=== PATIENT | female | born 1965 | race Caucasian/White ===

== ENCOUNTER 2018-05-31 10:19 | Inpatient (IN) ==
--- NOTE | 2018-04-17 10:51 | Anesthesiology Consultation ---
Date of Service April 17, 2018 Assessment & Plan (1) Encounter for pre-operative examination: Plan: - Check test AM DOS Chart Review Chart Review: Acceptable Risk for Surgery and Patient seen in Pre Admission Testing Teaching & Discussion Pre-Anesthesia Teaching/Discussion Notes: Instructed NPO after midnight before surgery,except medications with 15 cc of water. Medication instructions provided according to the PAT guidelines. History Surgery Operation Date: 05/31/18 07:30 Proposed Procedures p Right Total Knee Replacement - Bradley Alexander MD Height/Weight Height: 5 ft 6 in Weight: 103.2 kg Allergies Allergy/AdvReac Type Severity Reaction Status Date / Time No Known Allergies Allergy Verified 04/11/18 11:49 Medications Home Medications Medication Instructions Recorded Confirmed Last Taken Vitamin D 5,000 unit PO WK 04/11/18 04/11/18 Unknown budesonide-formoterol [Symbicort] 2 puff INHALATION HS 04/11/18 04/11/18 Unknown diclofenac sodium 75 mg PO BID PRN 04/11/18 04/11/18 Unknown fluticasone 2 spray INTRANASAL QPM 04/11/18 04/11/18 Unknown levothyroxine 150 mcg PO QAM 04/11/18 04/11/18 Unknown montelukast 10 mg PO PM 04/11/18 04/11/18 Unknown multivitamin 1 tab PO DAILY 04/11/18 04/11/18 Unknown ranitidine HCl 300 mg PO HS 04/11/18 04/11/18 Unknown sertraline 200 mg PO QAM 04/11/18 04/11/18 Unknown Past Medical History Medical History Anxiety Depression GERD (gastroesophageal reflux disease) CONTROLLED Hypothyroidism Obesity Osteoarthritis Sleep apnea CPAP Past Surgical History Surgical History H/O bilateral breast reduction surgery H/O bladder repair surgery MESH IMPLANTED H/O plastic surgery BILATERAL UE SKIN REMOVAL History of arthroscopy LEFT KNEE History of colonoscopy History of tonsillectomy History of tooth extraction History of total knee replacement LEFT Hx of laparoscopic gastric banding S/P panniculectomy Past Anesthesia History No Hx of Anesthesia Complications and No Family Hx of Anesthesia Complications History of PONV No Motion Sickness Screening History of Motion Sickness: No Social History Smoking Status: Never smoker Do You Dip or Chew Tobacco: No Hx Alcohol Use: Yes Alcohol type: wine and hard liquor alcohol intake frequency: a few times a week Hx Substance Use: Yes substance use type: marijuana (OCCASIONAL USE (INGESTION)- LAST USE "FEW WEEKS AGO"- ADVISED NO USE AM DOS) Exercise / Class Metabolic Activity II 4-5 Yardwork/Stairs/Walk up hill Review of Systems Patient reports knee pain. Reflux controlled. Patient denies chest pain, shortness of breath, cough, wheezing, palpitations. Physical Exam Vital Signs VITALS BP 119/83 P 63 TEMP 97.7 RESP 18 SP02 97%RA Full neck and c-spine range of motion. Full TMJ range of motion. TMD 3 finger breaths Mallampati Score3 Dentition: intact Lungs: clear throughout to auscultation Cardiac: regular rate and rhythm, no murmurs noted Spine: normal Carotid arteries: negative bruit Extremities: no edema Testing Electrocardiogram Date: 04/17/18 Findings: + NSR @ (66) Chest X-Ray Date: 04/17/18 Findings: + NAD The heart is top normal for projection. There is left basilar atelectasis. Chronic interstitial thickening is similar to previous. No airspace consolidation or pleural effusion is identified. A gastric band is noted in the upper abdomen. Laboratory Results 04/17/18 11:16 04/17/18 11:16 Blood Type A Positive 04/17/18 11:16 Antibody Screen NEGATIVE 04/17/18 11:16 PT 10.1 Seconds (9.0-12.0) 04/17/18 11:16 INR 1.0 (0.9-1.1) 04/17/18 11:16 APTT 30.6 Seconds (21.0-31.0) 04/17/18 11:16
--- NOTE | 2018-04-17 10:53 | PAT Medication Instructions ---
Medication Instructions Date of Service April 17, 2018 Home Medications Vitamin D 5,000 unit PO WK budesonide-formoterol [Symbicort] 2 puff INHALATION HS diclofenac sodium 75 mg PO BID PRN fluticasone 2 spray INTRANASAL QPM levothyroxine 150 mcg PO QAM montelukast 10 mg PO PM multivitamin 1 tab PO DAILY ranitidine HCl 300 mg PO HS sertraline 200 mg PO QAM ASK your surgeon for instructions diclofenac sodium 75 mg PO BID PRN DO NOT take the morning of surgery Vitamin D 5,000 unit PO WK multivitamin 1 tab PO DAILY Take morning of surgery With a small sip of water, OTHERWISE NOTHING TO EAT OR DRINK AFTER MIDNIGHT: levothyroxine 150 mcg PO QAM sertraline 200 mg PO QAM Take evening before surgery Vitamin D 5,000 unit PO WK budesonide-formoterol [Symbicort] 2 puff INHALATION HS diclofenac sodium 75 mg PO BID PRN fluticasone 2 spray INTRANASAL QPM levothyroxine 150 mcg PO QAM montelukast 10 mg PO PM multivitamin 1 tab PO DAILY ranitidine HCl 300 mg PO HS Other Notes If you have any questions please call us at [phone] or [phone] or [phone] or [phone]
--- NOTE | 2018-04-17 11:58 | XRay Report ---
TWO VIEW CHEST CLINICAL HISTORY: Preoperative examination. FINDINGS: PA and lateral chest radiographs are compared to study dated 11/06/2012. The heart is top nor mal for projection. There is left basilar atelectasis. Chronic interstitial thickening is similar to previous. No airspace consolidation or pleural effusion is identified. There is no pneumothorax. The skeletal structures are osteopenic. Degenerative change is noted throughout the thoracic spine. The b cesar thorax appears intact. A gastric band is noted in the upper abdomen. IMPRESSION: No active disease in the chest. Electronically signed by: Moises Harden M.D. 04/17/2018 11:57 AM
[2018-04-17 12:40] LABS: Basophils # (auto) 0.05 K/uL (0-0.2); Basophils % (auto) 0.7 %; Eosinophils # (auto) 0.19 K/uL (0-0.5); Eosinophils % (auto) 2.6 %; Hematocrit (blood only) 43.5 % (37-47); Hemoglobin 14.2 g/dL (12.0-16.0); Immature Granulocytes # (auto) 0.01 K/uL (0.00-0.02); Immature Granulocytes % (auto) 0.1 %; Lymphocytes # (auto) 1.42 K/uL (1.2-3.4); Lymphocytes % (auto) 19.2 %; Mean Corpuscular Hgb Conc 32.6 g/dL (32-36); Mean Corpuscular Volume 94.8 fL (80-100); Mean Platelet Volume 10.9 fL (7.4-10.4); Monocytes # (auto) 0.74 K/uL (0.11-0.59); Neutrophils % (auto) 67.4 %; Platelet Count 328 K/uL (130-400); RDW Coefficient of Variation 14.1 % (11.5-14.5); RDW Standard Deviation 48.4 fL (36.4-46.3); Red Blood Count 4.59 M/uL (4.2-5.4); White Blood Count 7.41 K/uL (4.8-10.8)
[2018-04-17 12:57] LABS: BUN Creatinine Ratio 24.9 (10-20); Creatinine Clr Calc Pharmacy 105.5 ml/min; Est GFR (African American) 106.5; Est GFR (Non-African American) 91.8; Potassium 4.6 mmol/L (3.5-5.1)
[2018-04-17 12:59] LABS: C Reactive Protein 1.84 mg/dl (0-0.29)
[2018-04-17 13:09] LABS: Partial Thromboplastin Ratio 1.2; Partial Thromboplastin Time 30.6 Seconds (21.0-31.0); Prothrombin Time 10.1 Seconds (9.0-12.0)
--- NOTE | 2018-05-26 18:55 | History and Physical Report ---
DATE OF ADMISSION: 05/31/2018 CHIEF COMPLAINT: Right knee pain and discomfort. HISTORY OF PRESENT ILLNESS: Patient is a 52-year-old female from [place], who presents for surgical treatment of her right knee. She is well known to me from replacement of her left knee back in 12/2012. She has done well from this side. She continues to be bothered by right knee pain and discomfort, describes it has just gotten worse over time. She has been through extensive treatment including oral medicines as well as injections, which provided temporary relief only. Only gets a couple of days of relief from the shot. The medicines are not managing it for her. She now would like to have her right knee replaced. She has pain all the time. The more she walks, the more it hurts. It keeps her up at night, almost every night. PAST MEDICAL HISTORY: Significant for 1. Sleep apnea, with CPAP machine. 2. Hypothyroidism. 3. Arthritis. 4. Gastroesophageal reflux disease. 5. Obesity with a BMI of 37. PAST SURGICAL HISTORY: Previous surgeries include left knee replacement done on 12/14/2012. ALLERGIES: None. MEDICATIONS: Current medicines include 1. Symbicort 2 puffs at night. 2. Ventolin inhaler. 3. Synthroid 150 mcg a day. 4. Sertraline 100 mg twice a day. 5. Montelukast 10 mg in the evening. 6. Fluticasone nasal spray. 7. Diclofenac twice a day. 8. Ranitidine 300 mg in the evening. SOCIAL HISTORY: This is a 52-year-old female. She is from [place]. She does not smoke. 4 drinks per week. Occasionally marijuana use. FAMILY HISTORY: Noncontributory. REVIEW OF SYSTEMS: Negative for diabetes, neurologic problem, vascular problem, bleeding disorders. No chest pain, no shortness of breath. No history of DVT or PE. No known bleeding disorder. No dysuria. PHYSICAL EXAMINATION: GENERAL: Exam reveals a healthy and pleasant middle-aged female, looks to be in excellent health. HEENT: Benign. NECK: Supple. No lymphadenopathy. RESPIRATORY: Lungs are clear to auscultation. CARDIOVASCULAR: Heart has a regular rate and rhythm. GASTROINTESTINAL: Abdomen is soft, nontender, nondistended. EXTREMITIES: Grossly neurovascularly intact except as follows: Examination of the right knee reveals patient walks with bit of a limp, fairly neutral to slight varus alignment to her knee, moderate-sized knee effusion. Range of motion is near full extension and 125 degrees of flexion. No instability. Examination of the left knee reveals well-healed incision. No significant swelling. Range of motion is 0-125. IMAGING: X-rays of the right knee reviewed, showed advanced right knee DJD. She has tricompartment disease. She has complete loss of medial joint space. There is some degree of tibiofemoral subluxation. The left knee replacement looks to be in good position without signs of problems. ASSESSMENT: A 53-year-old white female 5 years out from left knee replacement with advanced right knee degenerative joint disease. She has failed conservative treatment and would like to have her right knee replaced. PLAN: Will take her to the operating room and do right total knee replacement. The risks and benefits of this procedure were explained to the patient including but not limited to DVT, PE, , infection, neurological injury, vascular injury, bleeding problem, pain, limited range of motion, stiffness, failure to relieve her symptoms, incomplete relief of symptoms, need for further surgery in the future, fracture, leg length inequality, nerve palsy, need for revision surgery in the future. She is fully aware at her young age, this might need to be redone. She is aware and would like to proceed. She knows about stopping her diclofenac 10 days preop. She will bring her CPAP machine to the hospital.
[~2018-05-31 10:19] MED LIST: ACETAMINOPHEN 500 MG TAB PO SCH; ACETAMINOPHEN SOLN 1000MG/31.25ML UDC PO SCH; BUPIVACAINE 0.5 % 5 MG/1 ML PF 10ML VIAL ONE; BUPIVACAINE LIPOSOME/PF 266 MG, BUPIVACAINE/EPINEPHRINE 50 ML, SODIUM CHLORIDE 0.9% 30 ... INFIL SCH; CEFAZOLIN 2000MG 2,000 MG/15 ML SYR IV SCH; LR 60ML/HR IV SCH; ROPIVACAINE 0.5% 5 MG/ML 30 ML VIAL ONE; SCOPOLAMINE 1.5 MG TDSY TD SCH; TRANEXAMIC ACID 1,000 MG **IV Intra-op IV SCH; VANCOMYCIN HCL 1,500 MG in SODIUM CHLORIDE 0.9% 500 ML IV SCH
[2018-05-31] MEDS: FAMOTIDINE 20 MG TAB PO SCH ×2 (11:14→11:35)
[2018-05-31] MEDS: GABAPENTIN 300 MG x 3 PO SCH ×2 (11:14→11:34)
[2018-05-31] MEDS: METOCLOPRAMIDE HCL 10 MG TABLET PO SCH ×2 (11:14→11:34)
[2018-05-31] MEDS: LR 500ML BOLUS, THEN 15ML/HR IV SCH ×5 (11:15→18:52)
[2018-05-31 11:24] LABS: Pregnancy Test, Serum Negative (Negative)
--- NOTE | 2018-05-31 13:10 | History & Physical Bridge Note ---
Date of Service May 31, 2018 History & Physical Bridge Note I have examined the patient, reviewed the History & Physical and in the interval since the performance of the History & Physical I have noted the following changes of clinical significance: no changes noted
[2018-05-31] MEDS ORDERED: MIDAZOLAM HCL 1 MG/ML 2ML VIAL ONE ×2 (13:21→14:18)
[2018-05-31] MEDS ORDERED: fentaNYL citrate 100 MCG/2 ML VIAL ONE ×2 (13:22→14:18)
[2018-05-31] MEDS ORDERED: HYDROmorphone INJ 2 MG/ML SYR/VIAL IV PRN (13:56)
[2018-05-31] MEDS ORDERED: ATROPINE SULFATE 0.1 MG/ML 10ML SYR IV PRN (13:56)
[2018-05-31] MEDS ORDERED: ePHEDrine sulfate 50 MG/ML AMP IV PRN (13:56)
[2018-05-31] MEDS ORDERED: BUPIVACAINE LIPOSOME 1.3% 266 MG/20 ML VIAL ONE (14:49)
[2018-05-31] MEDS ORDERED: SODIUM CHLORIDE 0.9% PF 50 ML VIAL ONE (14:49)
[2018-05-31] MEDS ORDERED: BACITRACIN INJ 50,000 UNIT VIAL ONE (14:49)
[2018-05-31] MEDS ORDERED: BUPIVACAINE 0.25% 30 ML VIAL ONE (14:50)
[2018-05-31] MEDS ORDERED: EPINEPHrine INJ 1 MG/ML AMP ONE (14:50)
[2018-05-31] MEDS ORDERED: PROPOFOL IV EMULSION 10 MG/ML 20 ML VIAL IV ONE (17:02)
--- NOTE | 2018-05-31 17:06 | Post Operative Brief Note ---
Immediate Post Op Note v1 Date of Surgery May 31, 2018 Pre & Post Diagnosis Operation Date: 05/31/18 12:45 Pre-Op Diagnosis: Right Knee Degenerative Joint Disease Post-Op Diagnosis: Right Knee Degenerative Joint Disease Procedure Operation Date: 05/31/18 12:45 Actual Procedures p Right Total Knee Replacement(Right) - Bradley Alexander MD Surgeon Bradley Alexander MD Geologist Maciel, PAC Estimated Blood Loss 50 Findings Consistent with Post-Op Diagnosis Fluids 1500 cc Specimens Right Knee Anesthesia Type Spinal MAC Complications none Disposition Accompanied Patient To Recovery: No Disposition: Recovery Room
--- NOTE | 2018-05-31 17:28 | Anesthesiology Progress Note ---
Date of Service May 31, 2018 Anesthesia Post Procedure Vital Signs Vital Signs: Temp Pulse Pulse Resp BP BP Pulse Ox 05/31/18 17:20 57 L 16 124/85 98 05/31/18 17:11 37.2 C 65 16 118/87 100 05/31/18 10:51 36.7 C 65 20 115/78 94 Notes Mental Status: alert / awake / arousable Patient Amnestic to Procedure: Yes Nausea / Vomiting: adequately controlled Pain: adequately controlled Airway Patency, RR, SpO2: stable & adequate BP & HR: stable & adequate Hydration State: stable & adequate Neuraxial Anesthesia: was administered and sensory block is resolving Anesthetic Complications: no major complications apparent
--- NOTE | 2018-05-31 17:44 | XRay Report ---
TWO VIEWS RIGHT KNEE CLINICAL HISTORY: Postoperative examination. FINDINGS: AP and crosstable lateral portable views of the right knee are obtained. A right knee arthr oplasty is in near anatomic alignment. There has been undersurface remodeling of the patella. No acut e fracture is seen. There are expected postoperative changes around the knee including skin clips, s oft tissue edema, and subcutaneous gas. IMPRESSION: Expected postoperative changes status post right knee arthroplasty. No acute fracture is seen. Electronically signed by: Moises Harden M.D. 05/31/2018 5:43 PM
[2018-05-31] MEDS ORDERED: METOCLOPRAMIDE HCL INJ 5 MG/ML 2 ML VIAL IV PRN (17:45)
[2018-05-31] MEDS ORDERED: ONDANSETRON INJ 2 MG/ML 2 ML VIAL IV PRN (17:45)
[2018-05-31] MEDS ORDERED: HYDROmorphone INJ 0.5 MG/0.5 ML SYR IV PRN (17:45)
[2018-05-31] MEDS ORDERED: NALOXONE HCL 0.4 MG/1 ML VIAL/CARP IV PRN (17:45)
[2018-05-31] MEDS ORDERED: BISACODYL 10 MG SUPP PR PRN (17:45)
[2018-05-31] MEDS ORDERED: ALUMINUM/MAGNESIUM SUSP 30 ML UDC PO PRN (17:45)
[2018-05-31] MEDS ORDERED: MAGNESIUM HYDROXIDE SUSP 30 ML UDC PO PRN (17:45)
[2018-05-31] MEDS ORDERED: VANCOMYCIN CONSULT ACTIVE PRN (17:45)
[2018-05-31] MEDS: CHECK SCOPOLAMINE PATCH PLACEMENT SCH (18:57)
[2018-05-31] MEDS: KETOROLAC 30 MG/ML VIAL IV SCH (18:57)
[2018-05-31] MEDS: SODIUM CHLORIDE 0.9% 1000ML 1,000 ML IV SCH (18:57)
[2018-05-31] MEDS: OXYCODONE HCL IR 5 MG TAB (IMMEDIATE RELEASE) PO PRN (19:58)
--- NOTE | 2018-05-31 20:23 | Operative Report ---
DATE OF OPERATION: 05/31/2018 SURGEON: Bradley Alexander MD NAIL ASSEMBLY MACHINE OPERATOR: ELOY Bertrand PREOPERATIVE DIAGNOSIS: Right knee degenerative joint disease. POSTOPERATIVE DIAGNOSIS: Same. PROCEDURE PERFORMED: Right cemented posterior stabilized total knee arthroplasty. COMPLICATIONS: None. ESTIMATED BLOOD LOSS: 50 mL. FLUID REPLACEMENT: 1500 mL crystalloid fluid replacement. TOURNIQUET TIME: 63 minutes at 350 mmHg. ANESTHESIA: Spinal with adductor canal block. DRAINS: None. SPECIMENS: Right knee sent for pathology. OPERATIVE INDICATIONS: The patient is a 52-year-old very active female who has had a long history of knee pain and arthritis. She underwent a left knee replacement about 5 years ago and has done remarkably well. She has been trying to put off right knee surgery for a long time, but unsuccessful. She has become more debilitated by her pain. Very temporary response to injection treatment and minimal response to NSAIDS. She would now like to proceed with total knee arthroplasty. OPERATIVE IMPLANTS: Operative implants consisted of: 1. Biomet Vanguard size 65 right posterior stabilized femoral component. 2. Biomet size 67 tibial tray. 3. A 12-mm posterior stabilized polyethylene insert. 4. A 31 x 8 all poly patella. OPERATIVE PROCEDURE: The patient was taken to the operating room, identified and placed on the operating table in supine position. All contact areas were appropriately padded. IV antibiotics were provided by anesthesia team. A spinal anesthetic and adductor canal block had been provided in the holding area. Robertson catheter was placed in sterile fashion. A right thigh tourniquet was then placed and the right lower extremity was then prepped and draped in the usual sterile fashion. The right leg was elevated and exsanguinated with Esmarch and tourniquet was placed at 350 mmHg. An anterior approach to the right knee was then performed through a longitudinal incision centered over the patella. Sharp dissection was carried through the subcutaneous tissues down to the level of the extensor mechanism. A medial parapatellar arthrotomy incision was made. Some subperiosteal dissection was carried out medially. The fat pad was resected from beneath the patellar tendon. The lateral patellofemoral ligament was released. The patella was everted and knee was flexed. The osteophytes were taken off the distal femur. The ACL and PCL were then released from the distal femur and the tibia subluxated anteriorly. The external tibial alignment jig was then placed in the anterior face of the tibia and adjusted 16 mm medially. A proximal tibial cut was made to remove about 2-3 mm of bone from the most deficient aspect of the medial tibial plateau. Some osteophytes were taken off medial and posteromedially. Tibia sized to a size 67. Attention was then drawn to the femur. The distal femur was entered with a sharp drill bit. Intramedullary canal was suctioned. A right 5-degree valgus cutting guide was placed. Distal femoral cutting block was pinned in place. Distal femoral cut was made to take an additional 3 mm of bone off the distal femur. Femur was then sized to a size 65. We downsized this just slightly. The AP cutting block was pinned parallel to the epicondylar axis, which was 4 degrees of external rotation. The anterior cut, anterior chamfer, posterior cut, posterior chamfer cuts were made. Box cutting guide was placed and adjusted slightly lateral and the box cut was made. The knee was flexed. The remnants of the medial and lateral menisci were excised. The osteophytes were taken off the posterior aspect of the femur. Trial femoral component was placed. Tibial tray was pinned in maximum external rotation and the drill and stem punch were used to create a defect in the proximal tibia for the tibial tray. The knee was then trialed and the 12 mm insert fit most appropriately. Attention was then drawn to patella. The patella was cleaned of all soft tissues. Patellar thickness measured 22 mm in thickness and was cut down to 14. It was sized to a size 31 patella. Lug holes were drilled for a 31 patella. The lateral osteophyte was removed. Patellar button was placed. Knee was taken through range of motion and patella tracked nicely with no thumbs test. Attention was then drawn toward placement of the permanent components. All trial components were removed. Bone plug was placed in the distal femur to limit blood loss. A double batch of Palacos G cement was mixed. A Biomet Vanguard size 65 right posterior stabilized femoral component, size 67 tibial tray, a 12 mm posterior stabilized polyethylene insert, and a 31 x 8 all poly patella were then cemented in place. Knee was brought out into full extension until cement hardened. A final cement check was then performed. Pericapsular tissues were injected with total of a 100 mL of combination of 20 mL of Exparel, 30 mL of normal saline, 50 mL of 0.25% Marcaine with epinephrine. The patient did receive 1 gram of tranexamic acid. The tourniquet was then let down for a final tourniquet time of 63 minutes. Hemostasis was assured with use of electrocautery. The extensor mechanism was then closed with a combination of #1 PDS suture and #1 Vicryl suture in [id number] fashion. The extensor mechanism was checked and found to be intact. Subcutaneous tissues were then closed with #2 Dexon suture in a buried interrupted fashion. Skin was closed with skin ramo. Leg was then cleaned and dried and a sterile dressing of Xeroform, 4 x 4's, sterile cast padding, and an Federico bandage were applied. The patient was then transferred to the recovery room in stable condition. The patient tolerated the procedure well with no complications. All needle and sponge counts were correct at the end of the operation. I attest to the content of the Intraoperative Record and any orders documented therein. Any exception s are noted below.
[2018-05-31] MEDS: ASPIRIN 81 MG ECTAB PO SCH (21:36)
[2018-05-31] MEDS: SENNA 8.6 MG TAB PO SCH (21:36)
[2018-05-31] MEDS: MONTELUKAST SODIUM 10 MG TABLET PO SCH (21:37)
[2018-05-31] MEDS: ACETAMINOPHEN 500 MG TAB PO SCH (21:37)
[2018-05-31] MEDS: DOCUSATE SODIUM 100 MG CAP PO SCH (21:37)
[2018-05-31] MEDS: TAPENTADOL HCL ER 50 MG TABCR PO SCH (21:37)
[2018-05-31] MEDS ORDERED: INFLUENZA VIRUS QUAD VACCINE 0.5 ML SYR IM ONE (21:45)
[2018-05-31] MEDS ORDERED: INFLUENZA ADMINISTRATION CHARGE ONE (21:45)
[2018-05-31] MEDS: FLUTICASONE PROPIONATE NA SPR 16 GM BTL SCH (21:47)
[2018-05-31] MEDS: BUDESONIDE/FORMOTEROL FUMARATE 80/4.5 60 PUFFS/INHALER INH SCH (21:48)
[2018-05-31] MEDS: CEFAZOLIN 2000MG 2,000 MG/15 ML SYR IV SCH (21:52)
--- NOTE | 2018-05-31 21:58 | Progress Note ---
DATE: 05/31/2018 SUBJECTIVE: A 52-year-old female postop from a right knee replacement. She is doing pretty well. Really not having any pain yet. No chest pain or shortness of breath. Not feeling dizzy or lightheaded. OBJECTIVE: VITAL SIGNS: Temperature 36.2. Vital signs stable. GENERAL: Reveals a pleasant, middle-aged female. She is sitting up in bed and talking to her sister. She looks comfortable. LUNGS: Clear to auscultation. HEART: Regular rate and rhythm. ABDOMEN: Soft, nontender, nondistended. EXTREMITIES: Grossly neurovascularly intact except as follows. Examination of the right lower extremity reveals the leg to be well aligned. She can dorsiflex and plantarflex her foot, although it is a little bit weak yet. She has got brisk refill. Good distal pulse. She is neurologically intact. X-RAYS: X-ray of the right knee from recovery room reviewed. It shows a right cemented posterior stabilized total knee arthroplasty. Components looked to be in good position. No signs of problems. ASSESSMENT: A 52-year-old female postop from right knee replacement, doing well. Her pain is controlled and the function is returning. PLAN: 1. DVT prophylaxis including thigh-high TEDs, SCDs, and aspirin twice a day. 2. PT/OT. Weight bear as tolerated. Right total knee protocol. 3. Pain control, doing well with current pain regimen. 4. IV antibiotics x24 hours. 5. Disposition: She is planning to be discharged home with some home health and her sister's assistance once medically stable.
[2018-05-31] MEDS ORDERED: TRANEXAMIC ACID 1,000 MG in 0.9 % SODIUM CHLORIDE 100 ML IV SCH (23:00)
[2018-05-31] MEDS ORDERED: VANCOMYCIN HCL 1,500 MG in SODIUM CHLORIDE 0.9% 500 ML IV ONE (23:00)
[2018-06-01] MEDS: KETOROLAC 30 MG/ML VIAL IV SCH ×5 (00:59→23:43)
[2018-06-01] MEDS: CHECK SCOPOLAMINE PATCH PLACEMENT SCH (01:00)
[2018-06-01] MEDS ORDERED: Nursing to Pharmacy Communication ONE (04:43)
[2018-06-01] MEDS: SODIUM CHLORIDE 0.9% 1000ML 1,000 ML IV SCH (04:52)
[2018-06-01] MEDS: ACETAMINOPHEN 500 MG TAB PO SCH ×3 (06:23→21:55)
[2018-06-01] MEDS: CEFAZOLIN 2000MG 2,000 MG/15 ML SYR IV SCH (06:23)
[2018-06-01] MEDS: LEVOTHYROXINE SODIUM 150 MCG TABLET PO SCH (06:24)
[2018-06-01 06:54] LABS: Hematocrit (blood only) 37.4 % (37-47); Mean Corpuscular Hgb Conc 32.1 g/dL (32-36); Mean Corpuscular Volume 96.1 fL (80-100); Platelet Count 269 K/uL (130-400); RDW Coefficient of Variation 14.8 % (11.5-14.5); RDW Standard Deviation 52.1 fL (36.4-46.3); Red Blood Count 3.89 M/uL (4.2-5.4); White Blood Count 12.89 K/uL (4.8-10.8)
[2018-06-01 07:27] LABS: BUN Creatinine Ratio 22.9 (10-20); Calcium 8.1 mg/dl (8.5-10.1); Creatinine Clr Calc Pharmacy 107.3 ml/min; Est GFR (African American) 106.5; Est GFR (Non-African American) 91.8
--- NOTE | 2018-06-01 07:45 | Progress Note ---
DATE: 06/01/2018 SUBJECTIVE: A 52-year-old white female postop day 1 from a right knee replacement. She is doing pretty well. She had a painful episode last night, but responded well to the pain medicine. No chest pain or shortness of breath. Not feeling dizzy or lightheaded. OBJECTIVE: VITAL SIGNS: Temperature 36.6. Vital signs stable. GENERAL: Physical examination shows a pleasant, middle-aged female. She is lying in bed, looks pretty comfortable. EXTREMITIES: Examination of the right leg reveals the leg to be well aligned. Dressing is clean, dry and intact. She can dorsiflex and plantarflex her foot appropriately. She is neurologically intact. LABORATORY DATA: Hemoglobin 12.0, hematocrit 37.4. Electrolytes are pending. ASSESSMENT: A 52-year-old white female postop day 1 from a right knee replacement, doing pretty well. Pain has been reasonably well controlled. She is neurologically intact. PLAN: 1. DVT prophylaxis including thigh-high TEDs, SCDs, and aspirin twice a day. 2. PT/OT. Weight bear as tolerated. Right total knee protocol. 3. Pain control, doing pretty well with current pain regimen. 4. Disposition: She is planning to be discharged home and do outpatient therapy. She can see how therapy goes today and see how her pain is. Possibly discharge today or likely tomorrow.
--- NOTE | 2018-06-01 08:21 | Anesthesiology Progress Note ---
Date of Service June 01, 2018 Anesthesia Post Procedure Vital Signs Vital Signs: Temp Pulse Pulse Pulse Resp BP BP 06/01/18 07:25 36.7 C 59 L 16 118/78 06/01/18 04:17 36.6 C 72 15 116/73 06/01/18 00:40 36.6 C 74 15 132/79 05/31/18 20:07 36.2 C L 56 L 17 124/78 05/31/18 18:45 17 122/78 05/31/18 18:20 36.3 C L 59 L 17 121/79 05/31/18 17:40 36.4 C L 59 L 16 129/84 05/31/18 17:30 56 L 15 129/85 05/31/18 17:20 57 L 16 124/85 05/31/18 17:11 37.2 C 65 16 118/87 05/31/18 10:51 36.7 C 65 20 115/78 Pulse Ox 06/01/18 07:25 96 06/01/18 04:17 96 06/01/18 00:40 94 05/31/18 20:07 97 05/31/18 18:45 97 05/31/18 18:20 94 05/31/18 17:40 2 L 05/31/18 17:30 98 05/31/18 17:20 98 05/31/18 17:11 100 05/31/18 10:51 94 Pain Intensity Right Knee: Pain Intensity: 5 Notes Mental Status: alert / awake / arousable and participated in evaluation Patient Amnestic to Procedure: Yes Nausea / Vomiting: adequately controlled Pain: adequately controlled Airway Patency, RR, SpO2: stable & adequate BP & HR: stable & adequate Hydration State: stable & adequate Neuraxial Anesthesia: was administered and sensory block resolved Anesthetic Complications: no major complications apparent
[2018-06-01] MEDS: OXYCODONE HCL IR 5 MG TAB (IMMEDIATE RELEASE) PO PRN ×2 (08:40→17:52)
[2018-06-01] MEDS: ASPIRIN 81 MG ECTAB PO SCH ×2 (08:41→21:51)
[2018-06-01] MEDS: FERROUS GLUCONATE 324 MG TAB PO SCH ×2 (08:41→17:52)
[2018-06-01] MEDS: MULTIVITAMIN TAB PO SCH (08:41)
[2018-06-01] MEDS: ASCORBIC ACID 500 MG TAB PO SCH ×2 (08:41→17:52)
[2018-06-01] MEDS: SERTRALINE HCL 100 MG TABLET PO SCH (08:42)
[2018-06-01] MEDS: TAPENTADOL HCL ER 50 MG TABCR PO SCH ×2 (08:44→21:51)
[2018-06-01] MEDS: DOCUSATE SODIUM 100 MG CAP PO SCH ×2 (08:44→21:51)
[2018-06-01] MEDS ORDERED: MULTIVITAMIN PO SCH (09:00)
[2018-06-01] MEDS: MONTELUKAST SODIUM 10 MG TABLET PO SCH (21:51)
[2018-06-01] MEDS: BUDESONIDE/FORMOTEROL FUMARATE 80/4.5 60 PUFFS/INHALER INH SCH (21:51)
[2018-06-01] MEDS: SENNA 8.6 MG TAB PO SCH (21:51)
[2018-06-01] MEDS: FLUTICASONE PROPIONATE NA SPR 16 GM BTL SCH (21:51)
[2018-06-02] MEDS: KETOROLAC 30 MG/ML VIAL IV SCH (05:33)
[2018-06-02] MEDS: LEVOTHYROXINE SODIUM 150 MCG TABLET PO SCH (05:33)
[2018-06-02] MEDS: ACETAMINOPHEN 500 MG TAB PO SCH (06:24)
[2018-06-02] MEDS: ASCORBIC ACID 500 MG TAB PO SCH (07:25)
[2018-06-02] MEDS: FERROUS GLUCONATE 324 MG TAB PO SCH (07:25)
[2018-06-02] MEDS: ASPIRIN 81 MG ECTAB PO SCH (07:26)
[2018-06-02] MEDS: MULTIVITAMIN TAB PO SCH (07:26)
[2018-06-02] MEDS: DOCUSATE SODIUM 100 MG CAP PO SCH (07:26)
[2018-06-02] MEDS: SERTRALINE HCL 100 MG TABLET PO SCH (07:27)
[2018-06-02] MEDS: OXYCODONE HCL IR 5 MG TAB (IMMEDIATE RELEASE) PO PRN ×2 (07:31→11:38)
[2018-06-02] MEDS: TAPENTADOL HCL ER 50 MG TABCR PO SCH (07:31)
--- NOTE | 2018-06-02 09:42 | Progress Note ---
DATE: 06/02/2018 SUBJECTIVE: A 52-year-old female postop day 2 from right knee replacement. She is doing okay. Pain has been reasonably well controlled. No chest pain or shortness of breath. Not feeling dizzy or lightheaded. OBJECTIVE: VITAL SIGNS: Temperature 36.8. Vital signs stable. PHYSICAL EXAMINATION: GENERAL: Reveals a pleasant, middle-aged female. She is sitting up in bed and about to start eating breakfast. She says she is ready to go home. EXTREMITIES: Examination of the right knee reveals some moderate swelling. Her incisions are clean, dry and intact. No significant drainage. Calf is soft and supple. Knee is fairly swollen. She can dorsiflex and plantarflex her foot appropriately. ASSESSMENT: A 52-year-old female postop day 2 from right knee replacement, doing pretty well. She does have quite a bit of moderate amount of swelling. She is neurologically intact. PLAN: 1. DVT prophylaxis including thigh-high TEDs, SCDs, and aspirin twice a day. 2. PT/OT. Weight bear as tolerated. Right total knee protocol. 3. Pain control, doing pretty well with current pain regimen. 4. Disposition: She is planning to be discharged to home and likely do outpatient therapy.
[2018-06-04] MEDS ORDERED: CHOLECALCIFEROL 1,000 UNITS TAB PO SCH (09:00)
--- NOTE | 2018-06-09 07:52 | Discharge Summary ---
ADMITTING PHYSICIAN AND SURGEON: Bradley Alexander MD ADMITTING DIAGNOSIS: Right knee degenerative joint disease. SURGERY PERFORMED: Right total knee arthroplasty. SECONDARY DIAGNOSES: Sleep apnea, hypothyroidism, arthritis, gastroesophageal reflux disease, obesity. CONSULTS: None obtained. HISTORY AND PHYSICAL EXAMINATION: Well documented in the patient's chart. HOSPITAL COURSE: The patient was admitted on 05/31/2018, underwent total knee arthroplasty, tolerated the procedure well. There were no complications. She was transferred to the PACU postoperatively and later to the orthopedic floor for further care. She was given Ancef for antibiotic prophylaxis, GUERLINE stockings, SCDs and aspirin for DVT prophylaxis. Hemoglobin, hematocrit and vital signs were monitored during her hospital stay and remained stable, did not require any blood transfusions. There were no complications. By postoperative day 2, she was tolerating a regular diet, pain was controlled with oral pain medicine. She was participating in physical therapy. On postop day 2, she was discharged home. She was given printed discharge instructions including new prescriptions for extra-strength Tylenol, aspirin and oxycodone. Continue her home medications with the exception of her home dose of Tylenol, which was changed. Continue physical therapy, weightbearing as tolerated, GUERLINE stockings. Follow up approximately 2 weeks postoperatively or sooner if there are any problems or concerns.
== END 2018-06-02 12:05 | disposition home or self-care (01) | DRG 470 ==
LOC: ASU 10:19 → 3E 17:10